=== PATIENT | male | born 1960 | race Caucasian/White ===

== ENCOUNTER 2020-03-14 12:36 | Observation (INO) | payer OTHER, SELFPAY ==
[~2020-03-14] VITALS: Ht 180.3 cm; Wt 98.4 kg
[2020-03-14 12:40] VITALS: BP 135/92
--- NOTE | 2020-03-14 13:04 | NUR ---
KIKIA FROM [facility] W C/O L SIDED NON RADIATING SUDDEN ONSET CHEST PAIN 12/17 & SHARP X40 MIN. PT ON 3LPM O2 WHICH IS BASELINE FOR HIM PER EMS. PT DENIES SOB. PER PT, HE WAS RECENTLY HOSPITALIZED IN 01/[address] PT DENIES N/V. WAS ADMIN 1 NITRO IN FIELD AND 324MG ASPIRIN WHICH PT STATES PROVIDED SOME RELIEF. PT PLACED ON BEDSIDE RADIATION ONCOLOGIST AND BED IN LOW POSITION.
[2020-03-14] MEDS ORDERED: NITROGLYCERIN 0.4 MG TAB SL ONE (13:05)
--- NOTE | 2020-03-14 13:11 | NUR ---
PHARMACY WILL BRING NITRO OVER, NONE IN PYXIS
[2020-03-14] MEDS ORDERED: FURO-570 PO (13:25)
[2020-03-14] MEDS ORDERED: ALBU3SOL83 IH (13:25)
[2020-03-14] MEDS ORDERED: BEN50 PO (13:25)
[2020-03-14] MEDS ORDERED: ACET-9800 PO (13:25)
[2020-03-14] MEDS ORDERED: HYD1C TP (13:25)
[2020-03-14 13:31] LABS: BASOPHILS # (AUTO) 0.1 K/uL (0.00-0.22); BASOPHILS % (AUTO) 1.1 % (0.0-2.0); EOSINOPHILS # (AUTO) 0.6 K/uL (0-0.4); EOSINOPHILS % (AUTO) 8.3 % (0.0-4.0); HEMATOCRIT 41.3 % (36-52); HEMOGLOBIN 13.8 g/dL (12.0-18.0); LYMPHOCYTES # (AUTO) 1.6 K/uL (2.0-11.5); LYMPHOCYTES % (AUTO) 20.9 % (20.5-51.1); MEAN CORPUSCULAR HEMOGLOBIN 31 pg (27-31); MEAN CORPUSCULAR HGB CONC 33 g/dL (33-37); MONOCYTES # (AUTO) 0.8 K/uL (0.8-1.0); MONOCYTES % (AUTO) 11.1 % (1.7-9.3); NEUTROPHILS # (AUTO) 4.5 K/uL (1.8-7.7); NEUTROPHILS % (AUTO) 58.6 % (42.2-75.2); PLATELET COUNT (AUTO) 252 K/uL (140-450); RED CELL DISTRIBUTION WIDTH 13.9 % (11.6-13.7); WHITE BLOOD COUNT (AUTO) 7.7 K/uL (4.8-10.8)
--- NOTE | 2020-03-14 13:35 | NUR ---
DAUGHTER MIGUELITO HUBER [phone]
[2020-03-14 13:48] LABS: ALBUMIN 2.9 g/dL (3.4-5.0); ANION GAP 12.7 (8-16); CREATININE 1.2 mg/dL (0.6-1.3); POTASSIUM 3.7 mmol/L (3.5-5.1); TOTAL BILIRUBIN 0.6 mg/dL (0.0-1.0)
--- NOTE | 2020-03-14 13:51 | NUR ---
PT DAUGHTER MIGUELITO STATES PT WAS HOSPITALIZED 02/07/20 AFTER GOING INTO CARDIAC ARREST. PT REMAINED IN [facility] ICU UNTIL 02/22/20 WHEN DAUGHTER MADE THE DECISION TO REMOVE HIM FROM THE VENTILATOR. PT WOKE UP 02/26/20 AND WAS D/C TO [facility] FOR RE[facility]AB [facility]ERAPY DUE TO MUSCLE LOSS WHILE HOSPITALIZED. PER DAUGHTER, PT HAS LONG STANDING HX OF METH ABUSE, COPD, CARDIOMEGALY & HIS HEART FUNCTIONS @ 10%.
--- NOTE | 2020-03-14 14:40 | NUR ---
Abran huitron in [facility] - 03/14/20 at 1444 by [email or web address] CALLED TO GIVE REPORT TO SPRING, SHE WILL CALL BACK SHE IS HANGING MEDICATIONS AT THIS TIME.
[2020-03-14] MEDS ORDERED: ACETAMINOPHEN 325 MG TAB PO PRN (14:55)
[2020-03-14] MEDS ORDERED: ONDANSETRON 4 MG/2 ML VIAL IVP PRN (14:55)
[2020-03-14] MEDS ORDERED: REGADENOSON 0.4 MG/5 ML SYR IV ONE (15:00)
--- NOTE | 2020-03-14 15:35 | NUR ---
DIANNA REID SWAB COLLECTED AND WALKED TO LAB
[2020-03-14 15:39] LABS: CREATINE KINASE MB 1.4 ng/mL (0-3.6)
--- NOTE | 2020-03-14 16:09 | NUR ---
PT STATES HE DOES NOT HAVE PAIN AT THIS TIME. NO NEW NEEDS REQUESTED
--- NOTE | 2020-03-14 18:25 | NUR ---
PT EATING DINNER AT BEDSIDE. NO NEW NEEDS AT THIS TIME.
--- NOTE | 2020-03-14 18:46 | NUR ---
PT AMBULATED TO RESTROOM WITH ASSISTANCE
--- NOTE | 2020-03-14 19:10 | NUR ---
RECIEVED REPORT FROM JASON. TRANSFER OF CARE AT THIS TIME. Addendum: 03/14/20 at 1939 by MED RECIEVED REPORT FROM CANELO GOMEZ . TRANSFER OF CARE AT THIS TIME.
--- NOTE | 2020-03-14 19:15 | NUR ---
PT IS IN STABLE CONDITION. DENIED C/O PAIN, NO PAIN MANAGEMENT NEEDED AT THIS TIME. PT PLACED ON DISHWASHING MACHINE REPAIRER AND PULSE OX. BED LOCKED IN LOWEST POSTION, SIDE RAILS X1. CALL LIGHT PLACED IN REACH.
--- NOTE | 2020-03-14 19:50 | NUR ---
GAVE REPORT TO CANELO FLOWERS.
--- NOTE | 2020-03-14 20:00 | NUR ---
RECEIVED TELEPHONE REPORT FROM YURY QUINTERO RN.
--- NOTE | 2020-03-14 20:10 | NUR ---
PATIENT BROUGHT IN VIA GURNEY. TRANSFERRED TO BED WITH ASSIST OF 3 NURSES. PT TOLERATED WELL. PT IS AAOX4. RESPIRATIONS ARE EQUAL AND UNLABORED ON 2L VIA NC. C/C CHEST PAIN. DENIES ANY PAIN AT THIS TIME. ADMISSION QUESTIONS ADDRESSED. PTS IV ON LAC 20G IV CATH IS OUT. CATH INTACT. SKIN IS INTACT. COLOR IS APPROPRIATE FOR ETHNICITY. PT FROM [facility]. PT WITH CARDIAC HX: HTN, HLD, DVT, OR, CARDIAC ARREST. PT WITH DECREASE SENSATION ON LLE. WEAKNESS ON BLE AND LUE. UNABLE TO LEFT BLE OFF BED FROM GRAVITY. PT UNABLE TO WALK. PT STATES CP STARTED THIS MORNING. PT ADMITTED OBSERVATION WITH DX OF CHEST PAIN. MRSA SWAB OBTAINED. POC DISCUSSED WITH PT. CALL LIGHT IS WITHIN REACH. WILL CONTINUE TO MONITOR.
--- NOTE | 2020-03-14 20:10 | NUR ---
Patient will be admitted to care of [facility]. Admited to TELE. Will go to [facility]. Belongings list completed. Report to CANELO FLOWERS.
[2020-03-14 20:30] VITALS: BP 118/87
--- NOTE | 2020-03-14 21:00 | NUR ---
NEW IV STARTED ON L FA 22G ON FIRST ATTEMPT. PT TOLERATED WELL. COMMUNICATED PT WITH DAUGHTER MIGUELITO. ALL NEEDS MET. CALL LIGHT IS WITHIN REACH.
--- NOTE | 2020-03-14 22:50 | NUR ---
PT GOT UP TO THE BATHROOM DESPITE MX EXPLANATIONS TO STAY IN BED D/T HIGH RISK FOR FALLS. PT VOID AND LBM. ASSISTED PT BACK TO BED WITH WALKER. PT WITH VERY UNSTEADY GAIT. REMINDED PT TO CALL FOR ASSSISTANCE WHEN GETTING OUT OF BED. CALL LIGHT IS WITHIN REACH. BED ALARM ON, WILL ROUND FREQUENTLY.
[2020-03-15] VITALS: BP 110/63
--- NOTE | 2020-03-15 | NUR ---
VITAL SIGNS ARE WITHIN NORMAL LIMITS. PT DENIES ANY PAIN. CALL LIGHT IS WITHIN REACH. WILL CONTINUE TO MONITOR.
--- NOTE | 2020-03-15 02:07 | NUR ---
MADE ROUNDS. PT SLEEPING IN BED WITH EYES CLOSED. CHEST RISE AND FALL NOTED. CALL LIGHT WITHIN REACH. SAFETY MEASURES ARE IN PLACE. WILL CONTINUE TO MONITOR.
[2020-03-15 04:00] VITALS: BP 112/81
--- NOTE | 2020-03-15 04:32 | NUR ---
PT COMPLAINING OF ITCHINESS ON BACK. BACK WITH SCAR TISSUE PT SCRATCHING DESPITE EDUCATING ON TECHNIQUE TO SCRATCH WITH KNUCKLES. ALSO, APPLIED LOTION, AND APPLIED ICE PACKS PER REQUEST. REMINDED PT TO NOT SCRATCH. WILL CONTINUE TO MONITOR.
[2020-03-15 05:49] LABS: BASOPHILS # (AUTO) 0.1 K/uL (0.00-0.22); BASOPHILS % (AUTO) 0.9 % (0.0-2.0); EOSINOPHILS # (AUTO) 0.8 K/uL (0-0.4); EOSINOPHILS % (AUTO) 9.3 % (0.0-4.0); HEMATOCRIT 43.2 % (36-52); HEMOGLOBIN 14.5 g/dL (12.0-18.0); LYMPHOCYTES # (AUTO) 2.4 K/uL (2.0-11.5); LYMPHOCYTES % (AUTO) 28.1 % (20.5-51.1); MEAN CORPUSCULAR HEMOGLOBIN 31 pg (27-31); MEAN CORPUSCULAR HGB CONC 34 g/dL (33-37); MEAN CORPUSCULAR VOLUME 92.3 fL (80-94); MONOCYTES % (AUTO) 12.1 % (1.7-9.3); NEUTROPHILS # (AUTO) 4.3 K/uL (1.8-7.7); NEUTROPHILS % (AUTO) 49.6 % (42.2-75.2); PLATELET COUNT (AUTO) 259 K/uL (140-450); RED BLOOD CELL COUNT(AUTO) 4.68 MIL/uL (4.20-6.10); RED CELL DISTRIBUTION WIDTH 14.1 % (11.6-13.7); WHITE BLOOD COUNT (AUTO) 8.6 K/uL (4.8-10.8)
[2020-03-15 06:12] LABS: ANION GAP 9.7 (8-16); CREATININE 1.2 mg/dL (0.6-1.3); POTASSIUM 3.7 mmol/L (3.5-5.1)
--- NOTE | 2020-03-15 07:21 | NUR ---
GAVE BEDSIDE REPORT TO DAY RN. PT ENDORSED IN STABLE CONDITION.
--- NOTE | 2020-03-15 07:22 | NUR ---
RECEIVED BEDSIDE REPORT FROM MARINE OIL TERMINAL SUPERINTENDENT RN FOR CONTINUITY OF CARE. PATIENT IS AWAKE, AAOX4, ABLE TO MAKE NEEDS KNOWN. SKIN WARN, DRY, INTACT. IV SITE LEFT FOREARM 22 G INTACT. RESPIRATORY EVEN AND UNLABORED. ABDOMEN SOFT AND NON TENDER. NO ACUTE DISTRESS NOTED. DENIED CHEST PAIN OR DISCOMFORT. SAFETY MEASURES IN PLACE, WILL CONTINUE TO MONITOR.
[2020-03-15] MEDS: MORPHINE SULFATE 2 MG/ML SYR IVP PRN ×2 (08:25→16:08)
--- NOTE | 2020-03-15 08:25 | NUR ---
MORPHINE GIVEN VIA IVP FOR LOWER BACK PAIN 12/17. SCHEDULED MORNING MEDICATION GIVEN, EDUCATION PROVIDED. PATIENT HAVING HIS BREAKFAST. SAFETY MEASURES IN PLACE, WILL CONTINUE TO MONITOR.
[2020-03-15] MEDS ORDERED: ENOXAPARIN 40 MG/0.4 ML SYR SUBQ SCH (09:00)
[2020-03-15] MEDS ORDERED: ASPIRIN 81 MG TAB.CHEW PO SCH (09:00)
--- NOTE | 2020-03-15 09:27 | NUR ---
PATIENT HAS BEEN SCREENED AND CATEGORIZED MODERATE NUTRITION RISK. PATIENT WILL BE SEEN WITHIN 3-5 DAYS OF ADMISSION. 03/17/20 03/19/[address]
--- NOTE | 2020-03-15 11:15 | NUR ---
PATIENT DENIED PAIN OR DISCOMFORT AT THIS TIME. SAFETY MEASURES IN PLACE, CALL LIGHT WITHIN REACH. SAFETY MEASURES IN PLACE, WILL CONTINUE TO MONITOR
--- NOTE | 2020-03-15 11:44 | NUR ---
DC PLANN[age] YRS OLD MALE PATIENT WAS ADMITTED FROM [facility] WITH A DX OF CHEST PAIN. PT HAS A HX OF CAD, HTN HLD AND RECENTLY CARDIAC ARREST. TROP IS NEGATIVE X 3 . CXR SHOWED MILD LEFT BASAL ATELECTASIS. RAPID COVID TEST NEGATIVE. ADMINISTERED [facility] PROTOCOL , AND CONTINUED HOME MEDS. CONSULTED WITH WOOD FINISHER, PT EVALUATION. DC PLAN TO GO BACK TO [facility] PER PATIENT PREFERENCE. CM TO FOLLOW Addendum: 03/15/20 at 1434 by Louisa Massey CM DC PLANNING: RECEIVED A CALL FROM PT'S DAUGHTER MIGUELITO STATED SHE DOESN'T WANT HER DAD TO GO BACK TO [facility] ,THERE IS SOME ISSUES AND CONCERN THAT HER DAD TOLD HER HE WAS LYING DOWN ON BED WITH HIS FECES AND URINE AND NO ONE CAME TO CLEAN HIM UP, I SPOKE WITH THE PATIENT AND PATIENT STATED DOESN'T WANT TO GO BACK TO [facility], AND PER MIGUELITO SHE WANTED HER DAD TO STAY CLOSE TO [facility]. PROVIDE SEVERAL SNF'S LIST [facility], [facility] AND [facility]. PER MIGUELITO WILL CHEK THE PLACE AND REVIEW AND WILL CALL BACK. CM TO FOLLOW Addendum: 03/15/20 at 1517 by Louisa Massey CM DC PLANNING: PT HAS A DC ORDER TO SNF FOR PHYSICAL THERAPY. PT AND DAUGHTER CHOSE [facility]. CALLED [facility] LIAISON SPOKE WITH [place] [phone] WILL REVIEW THE PAPERWORK AND WILL CALL BACK. CALLED [facility] SPOKE WITH [facility] PERRY AUTH # FOR TRANSPORT [id number] . CM TO FOLLOW Addendum: 03/15/20 at 1536 by Louisa Massey CM DC PLANNING: ARRANGE TRANSPORT WITH [facility] [phone] IT WILL CALL. AWAITING FOR ROOM NUMBER FROM [facility]. Addendum: 03/15/20 at 1559 by Louisa Massey CM DC PLANNING: RECEIVED A CALL FROM LEXII MOISE SPOKE WITH [place] , ANA PAULA BOYLE ACCEPTED PATIENT AND CAN GO TO ROOM 18A , # TO GIVE REPORT [phone] ARRANGE TRANSPORT WITH [facility] TRANSPORT PLANER SETUP OPERATOR TIMED 6 PM . NOTIFIED SARAH LEMOS
[2020-03-15 12:00] VITALS: BP 134/87
--- NOTE | 2020-03-15 12:53 | NUR ---
PATIENT SITTING IN BED, WATCHING TV, JUST FINISHED LUNCH. DENIES PAIN OR DISCOMFORT. NO ACUTE DISTRESS NOTED. SAFETY MEASURES IN PLACE, WILL CONTINUE TO MONITOR.
--- NOTE | 2020-03-15 14:43 | NUR ---
P.T. NOTES P.T. EVAL COMPLETED; REFER TO EVAL FOR DETAILS.
[2020-03-15 15:40] LABS: CREATINE KINASE MB 1.2 ng/mL (0-3.6)
--- NOTE | 2020-03-15 15:48 | NUR ---
RECEIVED A CALL FROM SPRAY GUN OPERATOR JAYLA. PATIENT IS GOING TO BE TRANSFERRED TO [facility]. AMBULANCE ETA [employer] OPERATIONS ASSISTANT TIME 1800. WILL FOLLOW UP.
--- NOTE | 2020-03-15 16:12 | NUR ---
MORPHINE GIVEN FOR LOWER BACK PAIN 11/16. EDUCATION PROVIDED, SAFETY MEASURES IN PLACE. INFORMED PATIENT THAT HE WILL GOING TO BE TRANSFER TO THE [facility]. PATIENT'S DAUGHTER MIGUELITO NOTIFIED. WILL CONTINUE TO MONITOR.
[2020-03-15] MEDS ORDERED: FLU VACCINE QS2020-21 0.5 ML SYR IMVAC PRN (16:15)
--- NOTE | 2020-03-15 17:50 | NUR ---
DISCHARGE INSTRUCTION GIVEN, DISCHARGE PAPER SIGNED. PATIENT VERBALIZED UNDERSTAND. DISCHARGE PROTOCOL FOLLOWED. PATIENT IN STABLE CONDITION. WILL WAIT FOR THE TRANSPORTATION.
--- NOTE | 2020-03-15 18:05 | NUR ---
PATIENT WAS PICKED UP BY THE [facility]. PATIENT IN STABLE CONDITION.
== END 2020-03-15 18:05 ==
LOC: MED 12:36 → MMU 14:57 → MTU 19:38
PROVIDERS: ADMIT Hospitalist; ATTEND Hospitalist
DX: R07.89 Other chest pain (principal); Z20.828 Contact with and (suspected) exposure to other viral communicable diseases; R06.02 Shortness of breath; I25.110 Atherosclerotic heart disease of native coronary artery with unstable angina pectoris; I25.2 Old myocardial infarction; I10 Essential (primary) hypertension; E78.5 Hyperlipidemia, unspecified; F17.210 Nicotine dependence, cigarettes, uncomplicated; Z23 Encounter for immunization; Z79.899 Other long term (current) drug therapy; Z88.1 Allergy status to other antibiotic agents
CPT/HCPCS: 36415; 71045; 80048; 80053; 82550; 82553; 83880; 84484; 85025; 87081; 87426; 90471; 90686; 93005; 96372; 96374; 96376; 97112; 97162; 99285; G0378; J1650; J2270